=== PATIENT | female | born 1955 | race Caucasian/White ===

== ENCOUNTER 2023-10-17 04:23 | Day surgery (SDC) | payer BC ==
[2023-10-15 17:46] VITALS: BMI 25.3
[2023-10-17] MEDS ORDERED: LIDOCAINE HCL/PF 1% SDV 5ML VIAL ONE (07:13)
[2023-10-17] MEDS ORDERED: DEXAMETHASONE SOD PHOSPHATE 10 MG/1 ML VIAL ONE (07:14)
[2023-10-17 08:02] VITALS: RESP 18
[2023-10-17] MEDS: LIDOCAINE 1% P/F 10 MG/ML VIAL PNB ONE ×2 (09:55)
[2023-10-17] MEDS: DEXAMETHASONE SOD PHOSPHATE 10 MG/1 ML VIAL IVPUSH ONE ×2 (09:55)
[2023-10-17] MEDS: IOHEXOL 180 MG/1 ML ML IJ ONE ×2 (09:57)
[2023-10-17 10:36] VITALS: BP 122/56; PULSE 60; TEMP 97.3
[2023-10-17] MEDS ORDERED: ACETAMINOPHEN 500 MG TABLET (FP) PO PRN (12:51)
== END 2023-10-17 10:55 | disposition home or self-care (01) ==
LOC: JASU-SURG 04:23
PROVIDERS: ATTEND Pain Medicine Pain Medicine
PROC: 3E0R3BZ Introduction of Anesthetic Agent into Spinal Canal, Percutaneous Approach (ICD-10-PCS; 2023-10-17)
PROC: 3E0R33Z Introduction of Anti-inflammatory into Spinal Canal, Percutaneous Approach (ICD-10-PCS; principal; 2023-10-17 09:30)
DX: M54.16 Radiculopathy, lumbar region (principal)
CPT/HCPCS: 76000-TC-FY; J1100

== ENCOUNTER 2024-02-07 04:06 | Day surgery (SDC) | payer BC ==
[2024-02-03 12:56] VITALS: BMI 25.8
[~2024-02-07 04:06] MED LIST: ACETAMINOPHEN 500 MG TABLET (FP) PO PRN
[2024-02-07] MEDS ORDERED: LIDOCAINE HCL/PF 1% SDV 5ML VIAL ONE (07:23)
[2024-02-07 12:42] VITALS: RESP 20
[2024-02-07 17:06] VITALS: BP 118/63; PULSE 61; TEMP 98.6
== END 2024-02-07 15:47 | disposition home or self-care (01) ==
LOC: JASU-SURG 04:06
PROVIDERS: ATTEND Pain Medicine Pain Medicine
PROC: 3E0R3BZ Introduction of Anesthetic Agent into Spinal Canal, Percutaneous Approach (ICD-10-PCS; 2024-02-07)
PROC: 3E0R33Z Introduction of Anti-inflammatory into Spinal Canal, Percutaneous Approach (ICD-10-PCS; principal; 2024-02-07 13:30)
DX: M54.16 Radiculopathy, lumbar region (principal)
CPT/HCPCS: 76000-TC-FY